=== PATIENT | male | born 1970 | race Caucasian/White ===

== ENCOUNTER 2018-12-29 09:41 | Day surgery (SDC) | payer BC ==
[~2018-12-29] VITALS: Ht 190.5 cm; Wt 105.3 kg
[2018-12-29] MEDS ORDERED: OMEPRAZOLE20 MG PO (10:18)
[2018-12-29] MEDS ORDERED: Norco 5-325 Ta1 EACH PO (10:18)
[2018-12-29] MEDS ORDERED: CYCL10 PO (10:18)
[2018-12-29] MEDS ORDERED: PRED10 (10:19)
[2018-12-29] MEDS ORDERED: NAPR500EC PO (10:19)
[2019-02-05] MEDS ORDERED: Loratadine10 MG PO (11:15)
[2019-02-05] MEDS ORDERED: Metformin HCl500 M1 PO (11:16)
== END 2018-12-29 11:33 | disposition home or self-care (01) ==
LOC: ORSCSDS 09:41
PROVIDERS: Anesthesiology
PROC: 3E0R33Z Introduction of Anti-inflammatory into Spinal Canal, Percutaneous Approach (ICD-10-PCS; principal; 2018-12-29 10:45)
DX: M50.122 Cervical disc disorder at C5-C6 level with radiculopathy (principal); I10 Essential (primary) hypertension; G47.33 Obstructive sleep apnea (adult) (pediatric); K21.9 Gastro-esophageal reflux disease without esophagitis; Z79.899 Other long term (current) drug therapy
CPT/HCPCS: J1040; J2250; J3010

== ENCOUNTER 2019-02-13 07:35 | Day surgery (SDC) | payer BC ==
[~2019-02-13] VITALS: Ht 190.5 cm; Wt 106.3 kg
[~2019-02-13 07:35] MED LIST: CYCL10 PO; Loratadine10 MG PO; Metformin HCl500 M1 PO; NAPR500EC PO; Norco 5-325 Ta1 EACH PO; OMEPRAZOLE20 MG PO; PRED10
== END 2019-02-13 09:42 | disposition home or self-care (01) ==
LOC: ORSCSDS 07:35
PROVIDERS: Anesthesiology
PROC: 3E0R33Z Introduction of Anti-inflammatory into Spinal Canal, Percutaneous Approach (ICD-10-PCS; principal; 2019-02-13 09:00)
DX: M50.123 Cervical disc disorder at C6-C7 level with radiculopathy (principal); G47.33 Obstructive sleep apnea (adult) (pediatric); K21.9 Gastro-esophageal reflux disease without esophagitis; R03.0 Elevated blood-pressure reading, without diagnosis of hypertension; Z79.899 Other long term (current) drug therapy
CPT/HCPCS: J1040; J2250; J3010

== ENCOUNTER 2020-04-22 08:03 | Day surgery (SDC) | payer BC, OTHER ==
[~2020-04-22] VITALS: Ht 190.5 cm; Wt 107.7 kg
[~2020-04-22 08:03] MED LIST changes: +IBUP800 PO; +OMEP20ER PO; +TIZANIDINE HCL2 MG PO
[2020-04-22] MEDS ORDERED: NAPR500 (08:27)
[2020-04-22] MEDS ORDERED: CYCL10 (08:27)
--- NOTE | 2020-04-22 10:59 | NUR ---
04/22/20 1059 Nasreen Barboza 0929 59, 100, 156/103 0931 64, 100, 140/90 0933 69, 97, 140/96 0936 PT TAKEN TO SDU. PT ALERT AND ORIENTED. NO COMPLAINTS OR S/S OF DISTRESS.
== END 2020-04-22 09:58 | disposition home or self-care (01) ==
LOC: ORSCSDS 08:03
PROVIDERS: Anesthesiology
PROC: 3E0R33Z Introduction of Anti-inflammatory into Spinal Canal, Percutaneous Approach (ICD-10-PCS; principal; 2020-04-22 09:15)
DX: M50.122 Cervical disc disorder at C5-C6 level with radiculopathy (principal); R03.0 Elevated blood-pressure reading, without diagnosis of hypertension; K21.9 Gastro-esophageal reflux disease without esophagitis; G47.33 Obstructive sleep apnea (adult) (pediatric); Z68.30 Body mass index [BMI] 30.0-30.9, adult; Z79.899 Other long term (current) drug therapy
CPT/HCPCS: J1040; J2250; J3010

== ENCOUNTER 2021-07-06 12:16 | Day surgery (SDC) | payer BC, OTHER ==
[~2021-07-06] VITALS: Ht 193 cm; Wt 113.0 kg
[~2021-07-06 12:16] MED LIST changes: +CYCL10; +NAPR500
[2021-07-06] MEDS ORDERED: Amlodipine Bes2.5 MG PO (12:39)
[2021-07-06] MEDS ORDERED: MAGCHL64ER (12:39)
--- NOTE | 2021-07-06 12:47 | NUR ---
07/06/21 Anna Guzman CALL LIGHT WITHIN REACH.
== END 2021-07-06 14:02 | disposition home or self-care (01) ==
LOC: ORSCSDS 12:16
PROVIDERS: Anesthesiology
PROC: 3E0R33Z Introduction of Anti-inflammatory into Spinal Canal, Percutaneous Approach (ICD-10-PCS; principal; 2021-07-06 13:15)
DX: M50.123 Cervical disc disorder at C6-C7 level with radiculopathy (principal); G47.33 Obstructive sleep apnea (adult) (pediatric); K21.9 Gastro-esophageal reflux disease without esophagitis; J45.909 Unspecified asthma, uncomplicated; Z79.899 Other long term (current) drug therapy
CPT/HCPCS: J1040; J2250; J3010; J7040